=== PATIENT | male | born 1935 | race Caucasian/White ===

== ENCOUNTER 2018-07-17 14:28 | Inpatient (IN) | payer OTHER, MEDICARE ==
[~2018-07-17] VITALS: Ht 177.8 cm; Wt 85.8 kg
--- NOTE | 2018-07-17 15:19 | NUR ---
PT BIB [facility] TODAY, INCREASED WEAKNESS AND DIZZINESS X 1 WEEK. PT WAS ADMITTED AT [facility] ON 07/09 AND HAD A INTRACRANIAL BLEED. PT WITH HX: AFIB. PT HAD JESSICA SURGER IN SEPTEMBER. PT A&OX4. PT PLACED IN ROOM AND PLACED ON BP, CARDIAC AND CONT. PULSE OXIMETER. ASSESSMENT COMPLETED. EKG WAS DONE AND PRESENTED TO MD. PER [facility] BLOOD GLUCOSE WAS 111. IV STARTED IN FIELD.
--- NOTE | 2018-07-17 15:22 | NUR ---
PT MOVED TO ROOM 30 AND REPORT GIVEN TO BETSEY SANTANA.
[2018-07-17 15:24] LABS: BASOPHILS # (AUTO) 0.05 x10^3/uL (0-0.1); BASOPHILS % (AUTO) 0 % (0-1); EOSINOPHILS # (AUTO) 0.11 x10^3/uL (0-0.4); EOSINOPHILS % (AUTO) 1 % (1-7); LYMPHOCYTES # (AUTO) 1.77 x10^3/uL (1-3.4); LYMPHOCYTES % (AUTO) 16 % (22-44); MD NO; MEAN CORPUSCULAR HEMOGLOBIN 27.7 pg (27.5-34.5); MEAN CORPUSCULAR HGB CONC 33.1 g/dL (33.2-36.2); MEAN CORPUSCULAR VOLUME 83.5 fL (81-97); MONOCYTES # (AUTO) 1.06 x10^3/uL (0.2-0.8); MONOCYTES % (AUTO) 9 % (2-9); NEUTROPHILS # (AUTO) 8.25 x10^3/uL (1.8-6.8); NEUTROPHILS % (AUTO) 73 % (42-75); PLATELET COUNT 185 x10^3/uL (130-400); RED BLOOD COUNT 5.16 x10^6/uL (4.38-5.82); RED CELL DISTRIBUTION WIDTH 17.7 % (9.4-14.8)
--- NOTE | 2018-07-17 15:25 | NUR ---
REPORT FROM MAX OLIVAREZ. ASSUMED CARE OF PATIENT AT THIS TIME, PATIENT SITTING IN GURNEY, NADN, FAMILY AT BEDSIDE. CALL LIGHT WITHIN REACH.
[2018-07-17 15:37] LABS: ALBUMIN 3.6 g/dL (3.4-5.0); ANION GAP 3 mmol/L (5-15); CALCIUM 8.9 mg/dL (8.5-10.1); CHLORIDE 109 mmol/L (98-107); CREATININE 0.97 mg/dL (0.7-1.3)
[2018-07-17 15:40] LABS: INTERNATIONAL NORMALIZED RATIO 1.05 (0.93-1.1); PROTHROMBIN TIME 11.1 Seconds (9.6-11.5)
[2018-07-17 15:41] LABS: TROPONIN I 0.029 ng/mL (0.000-0.045)
--- NOTE | 2018-07-17 15:48 | NUR ---
VS UPDATED IN CHART, PATIENT SITTING IN GURNEY WATCHING TV, RESULTS BACK, CHART UP FOR RECHECK. NO ADDITIONAL NEEDS AT THIS TIME.
[2018-07-17] MEDS ORDERED: DIGO125T PO (16:17)
[2018-07-17] MEDS ORDERED: OMEP20TA62 PO (16:17)
[2018-07-17] MEDS ORDERED: MAGN400T7 PO (16:17)
[2018-07-17] MEDS ORDERED: ATOR80TA PO (16:17)
[2018-07-17] MEDS ORDERED: DILT120C64 PO (16:18)
--- NOTE | 2018-07-17 16:28 | NUR ---
JAVIER RN NOTE: PATIENT ASSISTED TO BR. WITH SON IN BR. PATIENT ASSISTED BACK TO BED, MONITOR, BP, SPO2 RE-ESTABLISHED. FAMILY AT BS. CALL LIGHT YAYAVNE TO PATIENT.
--- NOTE | 2018-07-17 17:02 | NUR ---
REPORT TO MAX THOMAS. [facility] AT BEDSIDE, PATIENT A+OX4. PATIENT TO BE TRANSPORTED AFTER.
--- NOTE | 2018-07-17 17:12 | NUR ---
PATIENT TRANSFERRED/ADMITTED TO HOSPITAL BED UPSTAIRS.
[2018-07-17] MEDS ORDERED: ONDANSETRON 2MG/ML, 2ML IVPush PRN (17:30)
[2018-07-17] MEDS ORDERED: ONDANSETRON ODT 4 MG PO PRN (17:30)
[2018-07-17] MEDS: SODIUM CHLORIDE 0.9% 1,000 ML IV SCH (17:44)
[2018-07-17 18:58] LABS: THYROID STIMULATING HORMONE 1.52 mIU/L (0.358-3.740)
[2018-07-17 20:07] LABS: CULTURE INDICATED? NO; MICROSCOPIC NOT IND
[2018-07-17 20:31] LABS: TROPONIN I 0.039 ng/mL (0.000-0.045)
[2018-07-17 22:15] VITALS: BP 157/68
[2018-07-17] MEDS ORDERED: NITROGLYCERIN 0.4 MG/SPRAY SL PRN (22:30)
[2018-07-17] MEDS ORDERED: NITROGLYCERIN 0.4 MG BOTTLE (25 TABS) SL PRN (22:30)
[2018-07-17] MEDS: ATORVASTATIN 80 MG TABLET PO SCH (22:54)
[2018-07-18] VITALS (9 sets, daily range): BP systolic 125–163; BP diastolic 62–77
[2018-07-18] MEDS ORDERED: MAALOX/HYOSCYAMINE/LIDOCAINE 45 ML BTL PO ONE
[2018-07-18] MEDS: GABAPENTIN 100 MG CAPSULE PO SCH ×4 (02:59→21:45)
[2018-07-18 03:20] LABS: BASOPHILS # (AUTO) 0.07 x10^3/uL (0-0.1); BASOPHILS % (AUTO) 1 % (0-1); EOSINOPHILS # (AUTO) 0.21 x10^3/uL (0-0.4); EOSINOPHILS % (AUTO) 2 % (1-7); LYMPHOCYTES # (AUTO) 1.94 x10^3/uL (1-3.4); LYMPHOCYTES % (AUTO) 18 % (22-44); MD NO; MEAN CORPUSCULAR HEMOGLOBIN 27.4 pg (27.5-34.5); MEAN CORPUSCULAR HGB CONC 32.8 g/dL (33.2-36.2); MEAN CORPUSCULAR VOLUME 83.7 fL (81-97); MEAN PLATELET VOLUME 8.6 fL (7.4-10.4); MONOCYTES % (AUTO) 10 % (2-9); NEUTROPHILS # (AUTO) 7.42 x10^3/uL (1.8-6.8); NEUTROPHILS % (AUTO) 69 % (42-75); PLATELET COUNT 182 x10^3/uL (130-400); RED BLOOD COUNT 5.21 x10^6/uL (4.38-5.82); RED CELL DISTRIBUTION WIDTH 17.6 % (9.4-14.8)
[2018-07-18 03:30] LABS: ALANINE AMINOTRANSFERASE 28 U/L (12-78); ALBUMIN 3.6 g/dL (3.4-5.0); ANION GAP 7 mmol/L (5-15); CALCIUM 8.8 mg/dL (8.5-10.1); CHLORIDE 107 mmol/L (98-107); CREATININE 0.98 mg/dL (0.7-1.3)
[2018-07-18 03:33] LABS: ALKALINE PHOSPHATASE 69 U/L (45-117); BILIRUBIN,TOTAL 1.1 mg/dL (0.2-1.0); TOTAL PROTEIN 6.3 g/dL (6.4-8.2)
[2018-07-18] MEDS: SODIUM CHLORIDE 0.9% 1,000 ML IV SCH ×2 (06:13→18:05)
[2018-07-18] MEDS: DILTIAZEM 120 MG CAP.ER.24H PO SCH (08:11)
[2018-07-18] MEDS: MAGNESIUM OXIDE 400 MG TABLET PO SCH (08:11)
[2018-07-18] MEDS: DIGOXIN 0.125 MG TABLET PO SCH (08:12)
[2018-07-18] MEDS: OMEPRAZOLE 20 MG CAPSULE.DR PO SCH (08:12)
[2018-07-18] MEDS: ATORVASTATIN 80 MG TABLET PO SCH (21:45)
[2018-07-19 02:13] VITALS: BP 150/67
[2018-07-19 07:02] VITALS: BP 112/61
[2018-07-19] MEDS: MAGNESIUM OXIDE 400 MG TABLET PO SCH (10:20)
[2018-07-19] MEDS: DIGOXIN 0.125 MG TABLET PO SCH (10:20)
[2018-07-19] MEDS: DILTIAZEM 120 MG CAP.ER.24H PO SCH (10:20)
[2018-07-19] MEDS: GABAPENTIN 100 MG CAPSULE PO SCH ×3 (10:20→21:56)
[2018-07-19] MEDS: OMEPRAZOLE 20 MG CAPSULE.DR PO SCH (10:20)
[2018-07-19] MEDS: SODIUM CHLORIDE 0.9% 1,000 ML IV SCH ×2 (10:21→22:38)
[2018-07-19] MEDS ORDERED: GADOBUTROL 10 MMOL/10 ML PFS ONE (15:59)
[2018-07-19 16:42] VITALS: BP 125/56
[2018-07-19 17:29] VITALS: BP 135/64
[2018-07-19 19:32] LABS: INTERNATIONAL NORMALIZED RATIO 1.06 (0.93-1.1); PROTHROMBIN TIME 11.2 Seconds (9.6-11.5)
[2018-07-19] MEDS ORDERED: WARFARIN 5 MG TABLET PO-COUM ONE (20:00)
[2018-07-19 20:08] VITALS: BP 131/61
[2018-07-19] MEDS: ATORVASTATIN 80 MG TABLET PO SCH (21:56)
[2018-07-20 01:31] VITALS: BP 131/71
[2018-07-20 05:32] LABS: BASOPHILS # (AUTO) 0.04 x10^3/uL (0-0.1); BASOPHILS % (AUTO) 0 % (0-1); EOSINOPHILS # (AUTO) 0.15 x10^3/uL (0-0.4); EOSINOPHILS % (AUTO) 2 % (1-7); INTERNATIONAL NORMALIZED RATIO 1.06 (0.93-1.1); LYMPHOCYTES # (AUTO) 1.56 x10^3/uL (1-3.4); LYMPHOCYTES % (AUTO) 15 % (22-44); MD NO; MEAN CORPUSCULAR HEMOGLOBIN 27.6 pg (27.5-34.5); MEAN CORPUSCULAR HGB CONC 33.1 g/dL (33.2-36.2); MEAN CORPUSCULAR VOLUME 83.5 fL (81-97); MEAN PLATELET VOLUME 8.4 fL (7.4-10.4); MONOCYTES # (AUTO) 1.18 x10^3/uL (0.2-0.8); MONOCYTES % (AUTO) 11 % (2-9); NEUTROPHILS # (AUTO) 7.38 x10^3/uL (1.8-6.8); NEUTROPHILS % (AUTO) 72 % (42-75); PLATELET COUNT 156 x10^3/uL (130-400); PROTHROMBIN TIME 11.2 Seconds (9.6-11.5); RED BLOOD COUNT 5.13 x10^6/uL (4.38-5.82); RED CELL DISTRIBUTION WIDTH 17.4 % (9.4-14.8)
[2018-07-20 05:38] LABS: ANION GAP 7 mmol/L (5-15); CALCIUM 8.9 mg/dL (8.5-10.1); CHLORIDE 107 mmol/L (98-107); CREATININE 0.99 mg/dL (0.7-1.3)
[2018-07-20 05:41] LABS: TROPONIN I 0.021 ng/mL (0.000-0.045)
[2018-07-20 07:29] VITALS: BP 135/70
[2018-07-20] MEDS ORDERED: WARF7.5T PO (09:23)
[2018-07-20] MEDS ORDERED: WARF5TAB PO (09:24)
[2018-07-20] MEDS: OMEPRAZOLE 20 MG CAPSULE.DR PO SCH (09:27)
[2018-07-20] MEDS: DIGOXIN 0.125 MG TABLET PO SCH (09:27)
[2018-07-20] MEDS: MAGNESIUM OXIDE 400 MG TABLET PO SCH (09:27)
[2018-07-20] MEDS: DILTIAZEM 120 MG CAP.ER.24H PO SCH (09:27)
[2018-07-20] MEDS: GABAPENTIN 100 MG CAPSULE PO SCH ×2 (09:27→17:23)
[2018-07-20 11:27] VITALS: BP 123/68
[2018-07-20 11:28] VITALS: BP 137/79
[2018-07-20 11:29] VITALS: BP 133/72
[2018-07-20 15:08] VITALS: BP 147/69
[2018-07-20] MEDS ORDERED: WARFARIN 5 MG TABLET PO-COUM SCH (18:00)
== END 2018-07-20 18:49 | disposition home or self-care (01) | DRG 65 ==
LOC: ED 15:23 → INTOOBSV 16:04 → OBSVTOIN 16:04 → EDIP 16:04 → 5SO 17:11
PROVIDERS: ADMIT Hospitalist; ATTEND Hospitalist
DX: I63.9 Cerebral infarction, unspecified (principal); D68.69 Other thrombophilia; I48.92 Unspecified atrial flutter; D72.829 Elevated white blood cell count, unspecified; G47.33 Obstructive sleep apnea (adult) (pediatric); G62.9 Polyneuropathy, unspecified; G90.9 Disorder of the autonomic nervous system, unspecified; I25.10 Atherosclerotic heart disease of native coronary artery without angina pectoris; I35.0 Nonrheumatic aortic (valve) stenosis; I48.2 Chronic atrial fibrillation; I49.3 Ventricular premature depolarization; J44.9 Chronic obstructive pulmonary disease, unspecified; K21.9 Gastro-esophageal reflux disease without esophagitis; K44.9 Diaphragmatic hernia without obstruction or gangrene; M19.90 Unspecified osteoarthritis, unspecified site; Z88.0 Allergy status to penicillin; Z88.8 Allergy status to other drugs, medicaments and biological substances; Z79.01 Long term (current) use of anticoagulants; Z82.49 Family history of ischemic heart disease and other diseases of the circulatory system; Z86.14 Personal history of Methicillin resistant Staphylococcus aureus infection; Z87.891 Personal history of nicotine dependence; Z95.1 Presence of aortocoronary bypass graft; Z95.2 Presence of prosthetic heart valve; Z95.5 Presence of coronary angioplasty implant and graft
CPT/HCPCS: 36415; 70450; 70553; 71045; 80048; 80053; 80162; 81003; 82040; 83735; 84100; 84443; 84484; 85025; 85610; 93005; 93306; 93880; 97162; 97166; 99285; A9585; J7030; G0378